=== PATIENT | female | born 1945 | race Caucasian/White ===

== ENCOUNTER → 2018-05-25 | Outpatient (CLI) | payer MEDICARE, OTHER | END | disposition home or self-care (01) | LOC: CVU 09:48 | PROVIDERS: ATTEND Internal Medicine Cardiovascular Disease | DX: I08.0 Rheumatic disorders of both mitral and aortic valves (principal); I25.10 Atherosclerotic heart disease of native coronary artery without angina pectoris; I65.23 Occlusion and stenosis of bilateral carotid arteries; I26.99 Other pulmonary embolism without acute cor pulmonale; Z87.891 Personal history of nicotine dependence | CPT/HCPCS: 0399T; 93306; 93880 ==

== ENCOUNTER 2018-07-04 12:49 | Outpatient (CLI) | payer MEDICARE, OTHER | END 2018-07-04 23:59 | disposition home or self-care (01) | LOC: CFH 12:49 | PROVIDERS: ATTEND Internal Medicine Cardiovascular Disease | DX: I25.10 Atherosclerotic heart disease of native coronary artery without angina pectoris (principal); I65.23 Occlusion and stenosis of bilateral carotid arteries; I25.89 Other forms of chronic ischemic heart disease | CPT/HCPCS: 78452; 93017; A9502 ==

== ENCOUNTER → 2019-02-06 | Outpatient (CLI) | payer MEDICARE, OTHER | END | disposition home or self-care (01) | LOC: CVU 14:31 | PROVIDERS: ATTEND Internal Medicine Cardiovascular Disease | DX: I87.2 Venous insufficiency (chronic) (peripheral) (principal); M79.662 Pain in left lower leg; M79.661 Pain in right lower leg; F17.200 Nicotine dependence, unspecified, uncomplicated; I73.9 Peripheral vascular disease, unspecified | CPT/HCPCS: 93970 ==

== ENCOUNTER 2019-05-24 11:02 | Emergency (ER) | payer MEDICARE, OTHER ==
[~2019-05-24] VITALS: Ht 172.7 cm; Wt 52.0 kg
[2019-05-24 11:05] VITALS: BP 158/79
--- NOTE | 2019-05-24 11:30 | NUR ---
PT HAS CO BACK PAIN FOR 1 WEEK. DENIES ANY INJURY. DENIES ISSUES VOIDING, NO ABDOMINAL PAIN, NO N/V. PT GIVEN WATER. PA AT BEDSIDE.
[2019-05-24 11:56] LABS: BASOPHILS # (AUTO) 0.01 x10^3/uL (0-0.1); BASOPHILS % (AUTO) 0 % (0-1); EOSINOPHILS # (AUTO) 0.03 x10^3/uL (0-0.4); EOSINOPHILS % (AUTO) 1 % (1-7); LYMPHOCYTES # (AUTO) 0.95 x10^3/uL (1-3.4); LYMPHOCYTES % (AUTO) 22 % (22-44); MD NO; MEAN CORPUSCULAR HEMOGLOBIN 29.7 pg (27.0-34.8); MEAN CORPUSCULAR HGB CONC 32.9 g/dL (32.4-35.8); MEAN CORPUSCULAR VOLUME 90.1 fL (80-100); MEAN PLATELET VOLUME 8.2 fL (7.4-10.4); MONOCYTES # (AUTO) 0.43 x10^3/uL (0.2-0.8); MONOCYTES % (AUTO) 10 % (2-9); NEUTROPHILS # (AUTO) 2.85 x10^3/uL (1.8-6.8); NEUTROPHILS % (AUTO) 67 % (42-75); PLATELET COUNT 236 x10^3/uL (130-400); RED BLOOD COUNT 4.56 x10^6/uL (3.82-5.3); RED CELL DISTRIBUTION WIDTH 15.5 % (9.6-15.2)
[2019-05-24 12:03] LABS: ALANINE AMINOTRANSFERASE 324 U/L (12-78); ALBUMIN 3.5 g/dL (3.4-5.0); ANION GAP 5 mmol/L (5-15); CALCIUM 8.7 mg/dL (8.5-10.1); CHLORIDE 105 mmol/L (98-107); CREATININE 0.81 mg/dL (0.55-1.02)
[2019-05-24 12:06] LABS: ALKALINE PHOSPHATASE 116 U/L (45-117); BILIRUBIN,TOTAL 0.6 mg/dL (0.2-1.0)
--- NOTE | 2019-05-24 12:06 | NUR ---
pt in imaging
--- NOTE | 2019-05-24 12:22 | NUR ---
ENCOURAGED PT FOR UA, PT DOES NOT NEED TO GO AT THIS TIME. GIVEN MORE WATER
--- NOTE | 2019-05-24 12:53 | NUR ---
UA SENT. WAITING FOR RESULTS, GIVEN WARM BLANKET
[2019-05-24 13:03] LABS: MICROSCOPIC AUTO
[2019-05-24 13:07] LABS: CULTURE INDICATED? YES
--- NOTE | 2019-05-24 13:24 | NUR ---
Patient/Caregiver given discharge instructions and they have confirmed that they understand the instructions. Patient ambulatory with steady gait.
== END 2019-05-24 13:38 | disposition home or self-care (01) ==
LOC: ED 13:04
DX: N30.00 Acute cystitis without hematuria (principal); M54.6 Pain in thoracic spine; E78.5 Hyperlipidemia, unspecified
CPT/HCPCS: 36415; 71045; 74176; 80053; 81001; 83690; 85025; 87086; 99285